=== PATIENT | male | born 1960 | race Caucasian/White ===

== ENCOUNTER 2017-09-10 02:33 | Emergency (ER) | payer OTHER ==
[~2017-09-10] VITALS: Ht 177.8 cm; Wt 77.1 kg
== END 2017-09-10 03:50 | disposition home or self-care (01) ==
LOC: FSED 02:33
DX: M79.644 Pain in right finger(s) (principal); F20.9 Schizophrenia, unspecified; F17.210 Nicotine dependence, cigarettes, uncomplicated
CPT/HCPCS: 99283

== ENCOUNTER 2019-02-24 09:12 | Emergency (ER) | payer OTHER | END 2019-02-24 09:56 | disposition short-term general hospital (02) | LOC: FSED 09:12 | DX: R21 Rash and other nonspecific skin eruption (principal) ==